=== PATIENT | male | born 1955 | race Caucasian/White ===

== ENCOUNTER 2018-02-07 07:25 | Day surgery (SDC) | payer BC, OTHER ==
[2018-02-07] MEDS ORDERED: Labetalol 20 MG/4 ML Syringe IVPUSH ONE (08:01)
[2018-02-07] MEDS ORDERED: fentaNYL 100 MCG/2 ML SDV ONE (08:07)
[2018-02-07] MEDS ORDERED: Propofol 200 MG/20 ML SDV ONE ×3 (08:07→10:25)
[2018-02-07] MEDS ORDERED: 50% Dextrose in Water 50 ML Syringe IV PRN (08:24)
[2018-02-07] MEDS ORDERED: Lactated Ringers 1,000 ML IV SCH (09:00)
[2018-02-07 11:51] VITALS: BP 187/84
--- NOTE | 2018-02-07 17:50 | OR ---
DATE OF SURGERY: 02/07/2018. REFERRING PROVIDER: Miriam Oneill MD. PREOPERATIVE DIAGNOSES: History of multiple colon polyps. Patient's last colonoscopy in [address] Arceo revealed 10 total polyps, 8 of which were tubular adenomas. POSTOPERATIVE DIAGNOSES: 1. Multiple colon polyps (16 polyps 1 cm or less in size were able to be removed. There was 1 larger sessile polyp measuring about 2.5 cm which was only able to be partially removed. This was near hepatic flexure). a. Two polyps at 90 cm removed with hot snare. b. Five polyps at 85 cm removed with hot snare and hot forceps. c. 2.5 cm sessile polyp near the hepatic flexure on a sharper turn. This was located about 80-85 cm from the anal verge, although distances were variable given the somewhat redundant colon. I was able to partially remove this using 1 pass of a hot snare but the remainder of the base was not able to be removed. This area was tattooed with ink in 4 separate quadrants. 2 mm polyp also present at this area removed with hot forceps. d. Three polyps at 75 cm, largest of which was about 1 cm in size. These removed with hot snare. e. Polyp x1 at 65 cm. f. Polyp x1 at 20 cm. g. Rectal polyps x3 removed with hot snare. PROCEDURE: Colonoscopy with polypectomy x16 using hot snare and/or hot forceps. SURGEON: Noé Thomas M.D. ANESTHESIA: Monitored anesthesia care. BOWEL PREP: Good. Daljit is a 62-year-old male was brought to the endoscopy suite after discussing risks and benefits of the procedure. Informed consent was obtained for conscious sedation and colonoscopy with or without biopsy and/or polypectomy. We also discussed possibility of missed lesions. Pre-procedure exam was unremarkable. IV, oxygen, and monitors were placed. The patient was placed in the left lateral decubitus position. Sedation was administered and a digital rectal exam was performed which was unremarkable. Colonoscope was passed into the rectum and slowly advanced all the way to the cecum. Cecum was viewed and photographed. The colonoscope was slowly withdrawn and the mucosa was closed observed in a direct circumferential manner. The patient had multiple number of polyps, total of 17, as noted above. Most of these ranged anywhere from 90 cm to 65 cm from the anal verge, although distances were variable given the somewhat redundant colon. Most prominent polyp was located near the hepatic flexure on a turn. This was about 80-85 cm from the anal verge. I estimated that this is about 2.5 cm sessile polyp. After partial removal, the area was marked with ink in 4 quadrants. This will need to be followed up with Colorectal surgery and may be able to be removed through the scope. Other than the polyps, the colon was otherwise normal. Retroflexion was performed and rectal mucosa was unremarkable except for 3 additional polyps noted and removed with hot snare with scope retroflexed. Scope was removed. The patient tolerated the procedure well. The patient was monitored until that baseline status. Discharge instructions were reviewed and the patient was discharged in good condition. COMPLICATIONS: None. TOTAL TIME: 63 minutes. ESTIMATED BLOOD LOSS: 1-2 mL. RECOMMENDATIONS/FOLLOWUP: We will await results of path report to determine ideal followup. The patient will need to see Colorectal Surgery regarding either endoscopic or surgical removal of the polyp which was only able to be partially removed near the hepatic flexure. This was about 2.5 cm in size and was sessile and difficult to access. Area was marked with ink. The patient is on chronic Coumadin for his history of 2 heart valve replacements, and also Plavix with his known heart disease. He had only held his Plavix for about 2 days prior to today's procedure. Last Lovenox was yesterday morning. I am going to have the patient hold his Plavix for another 3 days. He can resume his warfarin and Lovenox tonight as long as no blood noted in the stool. Given the patient's significant number of polyps in short period of time, I suspect the patient may have a genetic syndrome such as Brewer syndrome or other genetic condition leading to increased polyps. Genetic testing can be considered. We will send Dr. Oneill a message regarding this patient. I would like to kindly thank Dr. Oneill for this referral. DMB: 02/07/2018 12:27:47 MODL: 02/07/2018 17:44:42 /[id number]
== END 2018-02-07 12:33 | disposition home or self-care (01) ==
LOC: VM.SDS 07:25
PROVIDERS: ATTEND Family Medicine
DX: Z12.11 Encounter for screening for malignant neoplasm of colon (principal); D12.3 Benign neoplasm of transverse colon; K63.5 Polyp of colon; K62.1 Rectal polyp; I10 Essential (primary) hypertension; I25.10 Atherosclerotic heart disease of native coronary artery without angina pectoris; E10.9 Type 1 diabetes mellitus without complications; E78.00 Pure hypercholesterolemia, unspecified; E55.9 Vitamin D deficiency, unspecified; I25.2 Old myocardial infarction; Z87.891 Personal history of nicotine dependence; Z87.19 Personal history of other diseases of the digestive system; Z79.02 Long term (current) use of antithrombotics/antiplatelets; Z79.899 Other long term (current) drug therapy; Z95.1 Presence of aortocoronary bypass graft; Z88.0 Allergy status to penicillin
CPT/HCPCS: 36415; 45381; 45384; 45385; 82947; 82962; J2704; J3010; J3490; J7120; J7060

== ENCOUNTER 2018-04-05 20:12 | Emergency (ER) | payer OTHER, BC ==
[2018-04-05 20:40] VITALS: BP 181/82
[2018-04-05] MEDS ORDERED: Acetaminophen/HYDROcodone 325-10 MG Tab PO ONE (20:46)
--- NOTE | 2018-04-05 20:53 | EDM.PDOC ---
ED HPI GENERAL MEDICAL PROBLEM - General Chief Complaint: General Stated Complaint: swelling to left neck Time Seen by Provider: 04/05/18 20:40 Source of Information: Reports: Patient History Limitations: Reports: No Limitations - History of Present Illness INITIAL COMMENTS - FREE TEXT/NARRATIVE: Patient reports left sided mass with pain that started this morning and has worsened throughout the day. He has tried tylenol, but due to his heart history and anticoagulation, he is not taking ibuprofen. He has a history of colon surgery to remove polyps. Has had CABG with metal stents as well. He denies headache, does have some left ear pain. Has left sided neck swelling. He denies chest pain, SOB, abdominal pain, nausea or vomiting. No additional symptoms. Onset: Today, Gradual Onset Date: 04/05/18 Onset Time: 07:00 Duration: Getting Worse Location: Reports: Neck Quality: Reports: Ache, Pressure Severity: Moderate Associated Symptoms: Reports: No Other Symptoms Left Neck Pain Score (Numeric/FACES): 10 - Related Data Allergies Allergy/AdvReac Type Severity Reaction Status Date / Time Penicillins Allergy Hives Verified 04/05/18 20:53 Home Meds: Home Meds Cholecalciferol (Vitamin D3) [Vitamin D-3] 2,000 unit PO DAILY 01/13/15 [History ] Clopidogrel [Plavix] 75 mg PO DAILY 01/13/15 [History] Insulin Lispro [Humalog] 5 unit SQ ACBREAKFAST 01/13/15 [History] Insulin Lispro [Humalog] 9 units SQ ACLUNCH 01/13/15 [History] Insulin Lispro [Humalog] 16 units SQ ACDINNER 01/13/15 [History] Lisinopril 30 mg PO DAILY 01/13/15 [History] Nitroglycerin [Nitrostat] 0.4 mg SL Q5M PRN 01/13/15 [History] Nph, Human Insulin Isophane [Humulin N] 50 unit SQ BEDTIME 01/13/15 [History] Warfarin Sodium [Jantoven] 5 mg PO MOWEFR 01/13/15 [History] atorvaSTATin [Lipitor] 40 mg PO DAILY 01/13/15 [History] Warfarin Sodium [Jantoven] 7.5 mg PO ASDIRECTED 02/13/15 [History] Carvedilol [Coreg] 25 mg PO BID 02/01/18 [History] Furosemide 40 mg PO DAILY 02/01/18 [History] Phytonadione [Vitamin K] 100 mcg PO DAILY 02/01/18 [History] Tresiba 50 units SQ DAILY 02/01/18 [History] Past Medical History HEENT History: Reports: None Cardiovascular History: Reports: CAD, Heart Valve Replacement, High Cholesterol , Hypertension Respiratory History: Reports: None Gastrointestinal History: Reports: Colon Polyp Genitourinary History: Reports: None Musculoskeletal History: Reports: Other (See Below) Other Musculoskeletal History: Chronic hip pain right Neurological History: Reports: None Psychiatric History: Reports: None Endocrine/Metabolic History: Reports: Diabetes, Type I Other Hematologic History: Vitamin D deficiency Immunologic History: Reports: None Oncologic (Cancer) History: Reports: Basal Cell Carcinoma Dermatologic History: Reports: None - Past Surgical History Head Surgeries/Procedures: Reports: None HEENT Surgical History: Reports: None Cardiovascular Surgical History: Reports: Other (See Below) Other Cardiovascular Surgeries/Procedures: 3 stents placed Respiratory Surgical History: Reports: None GI Surgical History: Reports: Colonoscopy Male Surgical History: Reports: Vasectomy Endocrine Surgical History: Reports: None Neurological Surgical History: Reports: None Musculoskeletal Surgical History: Reports: None Oncologic Surgical History: Reports: None Dermatological Surgical History: Reports: None, Skin Biopsy ED ROS GENERAL - Review of Systems Review Of Systems: See Below Constitutional: Reports: No Symptoms HEENT: Reports: Other (neck pain, left side) Respiratory: Reports: No Symptoms Cardiovascular: Reports: No Symptoms Endocrine: Reports: No Symptoms GI/Abdominal: Reports: No Symptoms : Reports: No Symptoms Musculoskeletal: Reports: No Symptoms Skin: Reports: No Symptoms Neurological: Reports: No Symptoms Psychiatric: Reports: No Symptoms Hematologic/Lymphatic: Reports: No Symptoms Immunologic: Reports: No Symptoms ED EXAM, GENERAL - Physical Exam Exam: See Below Exam Limited By: No Limitations General Appearance: Alert, WD/WN, Mild Distress Eye Exam: Bilateral Eye: EOMI, Normal Inspection, PERRL Ears: Normal External Exam Nose: Normal Inspection, Normal Mucosa, No Blood Throat/Mouth: Normal Inspection, Normal Lips, Normal Teeth, Normal Gums, Normal Oropharynx, Normal Voice, No Airway Compromise Head: Atraumatic, Normocephalic Neck: Full Range of Motion, Lymphadenopathy (L), Tender Lateral Respiratory/Chest: No Respiratory Distress, Lungs Clear, Normal Breath Sounds, No Accessory Muscle Use, Chest Non-Tender Cardiovascular: Normal Peripheral Pulses, Regular Rate, Rhythm, No Edema, No Gallop, No JVD, No Murmur, No Rub GI/Abdominal: Normal Bowel Sounds, Soft, Non-Tender, No Organomegaly, No Distention, No Abnormal Bruit, No Mass Neurological: Alert, Oriented, CN II-XII Intact, Normal Cognition, Normal Gait, Normal Reflexes, No Motor/Sensory Deficits Psychiatric: Normal Affect, Normal Mood Skin Exam: Warm, Dry, Intact, Normal Color, No Rash Lymphatic: Adenopathy (left sided mass that is hard and tender to palpation, not warm or hot to the touch) Course - Vital Signs Last Recorded V/S: Last Vital Signs Temp 37.2 C 04/05/18 20:38 Pulse 77 04/05/18 20:38 Resp 18 04/05/18 20:38 BP 181/82 H 04/05/18 20:38 Pulse Ox 99 04/05/18 20:38 - Orders/Labs/Meds Orders: Active Orders 24 hr Category Date Time Status Soft Tissue Neck wo Cont [CT] Stat Exams 04/05/18 20:46 Ordered Meds: Medications Discontinued Medications Generic Name Dose Route Start Last Admin Trade Name Binhq PRN Reason Stop Dose Admin Hydrocodone Bitart/Acetaminophen 1 tab 04/05/18 20:46 [place] 325-10 Mg PO 04/05/18 20:47 ONETIME ONE - Radiology Interpretation Free Text/Narrative:: Radiology report indicates a 2.8 cm lesion of the parotid gland suspicious for benign or malignant neoplasm - Re-Assessments/Exams Free Text/Narrative Re-Assessment/Exam: 04/05/18 21:49 CBC negative for elevated white count or other abnormal results. Departure - Departure Time of Disposition: 21:49 Disposition: Home, Self-Care 01 Condition: Fair Clinical Impression: Lesion of parotid gland - Discharge Information Additional Instructions: Take the hydrocodone and prednisone as prescribed. Follow up with Dr. Oneill next week for further evaluation. Use ice for swelling. Call with any questions or concerns. - Problem List & Annotations (1) Lesion of parotid gland SNOMED Code(s): 004286977 Code(s): K11.8 - OTHER DISEASES OF SALIVARY GLANDS Status: Acute Priority : Medium Current Visit: Yes - Problem List Review Problem List Initiated/Reviewed/Updated: Yes - My Orders Last 24 Hours: My Active Orders 04/05/18 20:46 Soft Tissue Neck wo Cont [CT] Stat - Assessment/Plan Last 24 Hours: My Active Orders 04/05/18 20:46 Soft Tissue Neck wo Cont [CT] Stat Assessment:: left parotid gland lesion Plan: Take the hydrocodone and prednisone as prescribed. Follow up with Dr. Oneill next week for further evaluation. Use ice for swelling. Call with any questions or concerns.
[2018-04-05] MEDS ORDERED: Take Home: Acetaminophen/HYDROcodone 325-10 MG, 5 Tab Pack PO ONE (21:43)
[2018-04-05] MEDS ORDERED: Take Home: predniSONE 20 MG, 2 Tab Pack PO ONE (21:43)
== END 2018-04-05 22:00 | disposition home or self-care (01) ==
LOC: VM.ED 20:12
DX: K11.8 Other diseases of salivary glands (principal); E78.00 Pure hypercholesterolemia, unspecified; I10 Essential (primary) hypertension; E10.9 Type 1 diabetes mellitus without complications; Z88.0 Allergy status to penicillin; Z79.899 Other long term (current) drug therapy; Z79.01 Long term (current) use of anticoagulants
CPT/HCPCS: 36415; 70490; 85025; 99284; A9270

== ENCOUNTER 2019-08-20 07:47 | Day surgery (SDC) | payer BC, OTHER ==
[~2019-08-20 07:47] MED LIST: Lactated Ringers 1,000 ML IV SCH
--- NOTE | 2019-08-20 08:48 | PCM.HP.2 ---
H&P History of Present Illness - General Date of Service: 08/20/19 Admit Problem/Dx: Surveillance colonoscopy for history of multiple colon polyps and right colectomy for sessile serrated adenoma. Source of Information: Patient History Limitations: Reports: No Limitations - History of Present Illness Initial Comments - Free Text/Narative: 64 yo male here for surveillance colonoscopy for history of multiple colon polyps and right colectomy with Qamar Jorge 02/2018 for sessile serrated adenoma. No issues since. Onset of Symptoms: Reports: Other Duration of Symptoms: Reports: Other - Related Data Allergies/Adverse Reactions: Allergies Allergy/AdvReac Type Severity Reaction Status Date / Time Penicillins Allergy Hives Verified 08/20/19 08:39 Home Medications: Home Meds Cholecalciferol (Vitamin D3) [Vitamin D-3] 2,000 unit PO DAILY 01/13/15 [History ] Clopidogrel [Plavix] 75 mg PO DAILY 01/13/15 [History] Insulin Lispro [Humalog] 0 - 5 unit SQ ACBREAKFAST 01/13/15 [History] Insulin Lispro [Humalog] 10 - 15 units SQ ACLUNCH 01/13/15 [History] Insulin Lispro [Humalog] 15 - 25 units SQ ACDINNER 01/13/15 [History] Nitroglycerin [Nitrostat] 0.4 mg SL Q5M PRN 01/13/15 [History] Nph, Human Insulin Isophane [Humulin N] 50 unit SQ BEDTIME 01/13/15 [History] Warfarin Sodium [Jantoven] 5 mg PO ASDIRECTED 01/13/15 [History] Carvedilol [Coreg] 25 mg PO BID 02/01/18 [History] Furosemide 40 mg PO DAILY 02/01/18 [History] Phytonadione [Vitamin K] 100 mcg PO DAILY 02/01/18 [History] Acetaminophen 650 mg PO Q6H PRN 08/12/19 [History] Enoxaparin Sodium [Lovenox] 100 mg SQ BID 08/12/19 [History] Insulin Detemir [Levemir] 50 unit SUBCUT DAILY 08/12/19 [History] Lisinopril 30 mg PO DAILY 08/12/19 [History] Polymyxin B/Trimethoprim [PolyTrim Ophth Soln] 1 drop EYERT QID 08/12/19 [ History] amLODIPine [Norvasc] 5 mg PO DAILY 08/12/19 [History] atorvaSTATin [Lipitor] 40 mg PO DAILY 08/12/19 [History] tiZANidine HCl [Zanaflex] 2 mg PO TID 08/12/19 [History] Past Medical History HEENT History: Reports: Other (See Below) Other HEENT History: parotid mass. presbyopia. hypermetropia. astigmatism Cardiovascular History: Reports: CAD, Heart Valve Replacement, High Cholesterol , Hypertension, Other (See Below) Other Cardiovascular History: valvular heart disease Respiratory History: Reports: None, Other (See Below) Other Respiratory History: sleep disorder breathing Gastrointestinal History: Reports: Colon Polyp Genitourinary History: Reports: None Musculoskeletal History: Reports: Other (See Below) Other Musculoskeletal History: Chronic hip pain right;. trigger finger of right thumb;. plantar fasciitis of left foot Neurological History: Reports: None, Headaches, Chronic Psychiatric History: Reports: None Endocrine/Metabolic History: Reports: Diabetes, Type I, Vitamin D Deficiency Hematologic History: Reports: Polycythemia Immunologic History: Reports: None Oncologic (Cancer) History: Reports: Basal Cell Carcinoma Dermatologic History: Reports: None, Other (See Below) Other Dermatologic History: sebaceous cyst. pernieum skin tag - Past Surgical History Head Surgeries/Procedures: Reports: None Cardiovascular Surgical History: Reports: Coronary Artery Bypass, Other (See Below) Other Cardiovascular Surgeries/Procedures: 3 stents placed; hx of mitral valve replacement; hx of mechanical valve replacement Respiratory Surgical History: Reports: None GI Surgical History: Reports: Colonoscopy, Other (See Below) Other GI Surgeries/Procedures: lap colon resection Male Surgical History: Reports: Vasectomy Endocrine Surgical History: Reports: None Neurological Surgical History: Reports: None Musculoskeletal Surgical History: Reports: None, Other (See Below) Other Musculoskeletal Surgeries/Procedures:: partial amputation of left #5 finger;. achilles tendon repair Oncologic Surgical History: Reports: None Dermatological Surgical History: Reports: None, Skin Biopsy Social & Family History - Tobacco Use Smoking Status *Q: Former Smoker Years of Tobacco use: 20 Used Tobacco, but Quit: Yes Second Hand Smoke Exposure: No - Alcohol Use Days Per Week of Alcohol Use: 1 - Recreational Drug Use Recreational Drug Use: No Drug Use in Last 12 Months: No H&P Review of Systems - Review of Systems: Review Of Systems: ROS reveals no pertinent complaints other than HPI. General: Reports: No Symptoms HEENT: Reports: No Symptoms Pulmonary: Reports: Wheezing Cardiovascular: Reports: No Symptoms Gastrointestinal: Reports: No Symptoms Genitourinary: Reports: No Symptoms Musculoskeletal: Reports: No Symptoms Skin: Reports: No Symptoms Psychiatric: Reports: No Symptoms Neurological: Reports: No Symptoms Hematologic/Lymphatic: Reports: No Symptoms Immunologic: Reports: No Symptoms Exam - Exam Exam: See Below - Vital Signs Vital Signs: Last Vital Signs Temp Pulse 68 08/20/19 08:11 Resp 16 08/20/19 08:11 BP 179/84 H 08/20/19 08:11 Pulse Ox 94 L 08/20/19 08:11 Weight: 108.8 kg - Exam General: Alert Lungs: Clear to Auscultation, Normal Respiratory Effort Cardiovascular: Regular Rate, Regular Rhythm GI/Abdominal Exam: Normal Bowel Sounds, Soft, Non-Tender, No Organomegaly, No Distention, No Abnormal Bruit, No Mass, Pelvis Stable Skin: Warm, Dry, Intact Psychiatric: Alert, Normal Affect, Normal Mood - Patient Data Lab Results Last 24 hrs: Laboratory Results - last 24 hr 08/20/19 Range/Units 08:08 PT 11.2 (10.0-12.8) SEC INR 1.0 L (2.0-3.5) Problem List Initiated/Reviewed/Updated: Yes Orders Last 24hrs: Active Orders 24 hr Category Date Time Status Blood Glucose Check, Bedside [RC] ONETIME Care 08/20/19 07:00 Active Oxygen Therapy [RC] ASDIRECTED Care 08/20/19 07:00 Active Verify Patient Consent Obtain [RC] ASDIRECTED Care 08/20/19 07:00 Active Lactated Ringers [Ringers, Lactated] 1,000 ml Med 08/20/19 07:00 Active IV ASDIRECTED Peripheral IV Insertion Adult [OM.PC] Routine Oth 08/20/19 07:00 Ordered Medication Orders Lactated Ringer's (Ringers, Lactated) 1,000 mls @ 50 mls/hr IV ASDIRECTED MICKIE Stop: 08/20/19 23:59
[2019-08-20] MEDS ORDERED: Albuterol 0.083% 2.5 MG/3 ML Neb Soln NEB PRN (08:52)
[2019-08-20] MEDS ORDERED: Propofol 200 MG/20 ML SDV ONE ×2 (09:21→09:35)
[2019-08-20] MEDS ORDERED: fentaNYL 100 MCG/2 ML SDV ONE (09:21)
--- NOTE | 2019-08-20 10:14 | PCM.PRGIL ---
Lower GI Endoscopy Procedure Procedure:: Reports: Colonoscopy Intervention:: Biopsy (Hot snare and cold forceps polypectomies.) Procedure Comments:: FINDINGS: 1. Three polyps removed by hot snare polypectomy at the anastomosis in the right colon. 2. Polyp removed with biopsy forceps at 50cm. 3. Polyp removed with biopsy forceps at 30cm. 4. Polyp removed with biopsy forceps at 20cm. 5. Polyp removed with biopsy forceps at 18cm. PROCEDURE: After informed consent was obtained and satisfactory sedation achieved, the colonoscope was introduced and advanced with ease to the right colon and the anastomosis with small bowel was noted. On the anastomosis scar were three sessile polyps which were lifted with saline injection and needle to lift the sessile polyps and snared off with hot snare. Areas of unresected polyp were dessicated with electrocautery. The remaining above polyps were removed with biopsy forceps. The scope was withdrawn over 10 minutes and scattered left-sided diverticulosis was noted. The scope was retroflexed in the rectal vault and no pathology noted. Performed By:: Christopher Shaikh IV Date of Service:: 08/20/19 Informed Consent Obtained?: Yes Indications:: Reports: Hx of Colon CA/Polyps Rectodigital Exam:: Reports: Normal Exam Sedation:: Reports: Anesthesia Depth Reached (Location):: Reports: Terminal Ileum Depth Reached (cm):: 80 Depth Reached Comments:: RHC anastomosis. Landmarks Comments:: Small bowel mucosa and anastomotic scar. - Findings Rectal:: Reports: Normal Hemorrhoids:: Reports: None Previous Colon Surgery (Location):: Reports: Ascending Colon, Cecum Complications:: Reports: None Cultures:: Reports: None - Follow-up Follow-Up:: Repeat colonoscopy in 3 years or sooner per pathology.
[2019-08-20 10:42] VITALS: BP 141/70; PULSE 63
== END 2019-08-20 11:00 | disposition home or self-care (01) ==
LOC: VM.SDS 07:47
PROVIDERS: ATTEND Surgery
DX: Z12.11 Encounter for screening for malignant neoplasm of colon (principal); D12.2 Benign neoplasm of ascending colon; D12.5 Benign neoplasm of sigmoid colon; K63.5 Polyp of colon; K57.30 Diverticulosis of large intestine without perforation or abscess without bleeding; I10 Essential (primary) hypertension; I25.10 Atherosclerotic heart disease of native coronary artery without angina pectoris; I25.2 Old myocardial infarction; E10.9 Type 1 diabetes mellitus without complications; E78.00 Pure hypercholesterolemia, unspecified; E55.9 Vitamin D deficiency, unspecified; E66.9 Obesity, unspecified; D75.1 Secondary polycythemia; M19.90 Unspecified osteoarthritis, unspecified site; Z88.0 Allergy status to penicillin; Z68.37 Body mass index [BMI] 37.0-37.9, adult; Z95.5 Presence of coronary angioplasty implant and graft; Z87.891 Personal history of nicotine dependence; Z86.010 Personal history of colon polyps; Z79.01 Long term (current) use of anticoagulants; Z79.02 Long term (current) use of antithrombotics/antiplatelets; Z79.899 Other long term (current) drug therapy
CPT/HCPCS: 36415; 45380; 45381; 45385; 82962; 85610; J2704; J3010; J7120; 45384; J7613-GY

== ENCOUNTER 2022-11-17 06:10 | Day surgery (SDC) | payer MEDICARE, BC ==
[2022-11-17] MEDS: Glucose Gel 15 GM in 37.5 GM Tube PO STA ×2 (06:27→06:48)
[2022-11-17] MEDS ORDERED: Lactated Ringers 1,000 ML IV SCH (07:00)
[2022-11-17] MEDS ORDERED: Sodium Chloride 0.9% 10 ML Syringe FLUSH PRN (07:00)
[2022-11-17] MEDS ORDERED: Dextrose 5%-Lactated Ringers 1,000 ML IV SCH (07:30)
[2022-11-17] MEDS ORDERED: Propofol 200 MG/20 ML SDV ONE ×2 (07:31→08:09)
[2022-11-17] MEDS ORDERED: fentaNYL 100 MCG/2 ML SDV ONE (07:31)
[2022-11-17] MEDS ORDERED: Potassium Chloride Riders 0 ML ONE (08:09)
[2022-11-17 08:59] VITALS: BP 144/68; PULSE 56
== END 2022-11-17 09:25 | disposition home or self-care (01) ==
LOC: VM.SDS 06:10
PROVIDERS: ATTEND Student in an Organized Health Care Education/Training Program
DX: Z12.11 Encounter for screening for malignant neoplasm of colon (principal); D12.5 Benign neoplasm of sigmoid colon; D12.3 Benign neoplasm of transverse colon; I10 Essential (primary) hypertension; E78.00 Pure hypercholesterolemia, unspecified; E55.9 Vitamin D deficiency, unspecified; I25.10 Atherosclerotic heart disease of native coronary artery without angina pectoris; E10.9 Type 1 diabetes mellitus without complications; E66.9 Obesity, unspecified; G47.9 Sleep disorder, unspecified; M19.90 Unspecified osteoarthritis, unspecified site; Z79.01 Long term (current) use of anticoagulants; Z98.890 Other specified postprocedural states; Z86.010 Personal history of colon polyps; Z79.899 Other long term (current) drug therapy; Z79.4 Long term (current) use of insulin; Z88.0 Allergy status to penicillin; Z87.891 Personal history of nicotine dependence; Z68.38 Body mass index [BMI] 38.0-38.9, adult; Z95.1 Presence of aortocoronary bypass graft
CPT/HCPCS: 00811; 82947; 88305; A9270-GY; J2704; J3010; J3480; J7120; J7121